=== PATIENT | male | born 1995 | race Caucasian/White ===

== ENCOUNTER 2017-04-22 08:59 | Emergency (ER) | payer OTHER ==
[~2017-04-22] VITALS: Ht 177.8 cm; Wt 80.0 kg
[2017-04-22 09:00] VITALS: BP 131/75; PULSE 92; RESP 24; TEMP 97.7; O2SAT 98
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
== END 2017-04-22 11:06 | disposition home or self-care (01) ==
LOC: NEPD 08:59
DX: T52.0X1A Toxic effect of petroleum products, accidental (unintentional), initial encounter (principal); T20.41 Corrosion of unspecified degree of ear [any part, except ear drum]; Y93.89 Activity, other specified; Y99.0 Civilian activity done for income or pay
CPT/HCPCS: 99282